=== PATIENT | male | born 1965 | race Caucasian/White ===

== ENCOUNTER 2017-09-27 23:31 | Emergency (ER) | payer OTHER, MEDICAID ==
[~2017-09-27] VITALS: Ht 177.8 cm; Wt 84.0 kg
[2017-09-28] MEDS ORDERED: KETOROLAC 30MG/ML VIAL IM ONE (05:30)
[2017-09-28] MEDS ORDERED: ONDANSETRON 4MG ODT PO ONE (05:30)
[2017-09-28] MEDS ORDERED: DIAZEPAM 5 MG TABLET PO ONE (08:00)
[2017-09-28 08:04] VITALS: BP 110/77
== END 2017-09-28 08:51 | disposition home or self-care (01) ==
LOC: ER 23:31
DX: S80.212A Abrasion, left knee, initial encounter (principal); M54.2 Cervicalgia; M25.512 Pain in left shoulder; E05.90 Thyrotoxicosis, unspecified without thyrotoxic crisis or storm; F12.10 Cannabis abuse, uncomplicated; V00.131A Fall from skateboard, initial encounter; Y93.51 Activity, roller skating (inline) and skateboarding; Y92.89 Other specified places as the place of occurrence of the external cause; Y99.8 Other external cause status
CPT/HCPCS: 71101; 72125; 73030; 73564; 96372; 99284; J1885; Q0162

== ENCOUNTER 2025-09-17 11:08 | Emergency (ER) | payer MEDICAID ==
[~2025-09-17] VITALS: Ht 177.8 cm; Wt 86.0 kg
[2025-09-17 11:20] VITALS: TEMP 36.7; O2SAT 99
[2025-09-17] MEDS ORDERED: LEVO150T8 MT (11:56)
[2025-09-17 12:06] VITALS: BP 128/83; PULSE 66; RESP 16; O2SAT 100
== END 2025-09-17 12:09 | disposition home or self-care (01) ==
LOC: ER 11:08
DX: E89.0 Postprocedural hypothyroidism (principal); Z76.0 Encounter for issue of repeat prescription; Z79.890 Hormone replacement therapy
CPT/HCPCS: 99282